=== PATIENT | female | born 1990 | race Caucasian/White ===

== ENCOUNTER 2021-05-07 13:36 | Emergency (ER) | payer OTHER ==
[~2021-05-07] VITALS: Ht 160 cm; Wt 79.0 kg
[2021-05-07] MEDS ORDERED: IBUPROFEN 600MG TABLET PO STA (15:09)
[2021-05-07] MEDS ORDERED: BALANCED SALT IRRIG SOLN 15ML IR ONE (15:15)
[2021-05-07] MEDS ORDERED: FLUORESCEIN SODIUM 1MG/STRIP LEFTEYE ONE (15:15)
[2021-05-07] MEDS ORDERED: TETRACAINE 0.5% OPHTH DROPS 4ML LEFTEYE ONE (15:15)
[2021-05-07] MEDS ORDERED: IBUP-2029 PO (18:33)
[2021-05-07 19:08] VITALS: BP 132/77
[2021-05-07] MEDS ORDERED: POLY15DR31 LEFTEYE (19:09)
== END 2021-05-07 19:19 | disposition home or self-care (01) ==
LOC: ER 13:36
DX: S00.12XA Contusion of left eyelid and periocular area, initial encounter (principal); Y04.0XXA Assault by unarmed brawl or fight, initial encounter; Y93.89 Activity, other specified; Y92.89 Other specified places as the place of occurrence of the external cause; Y99.8 Other external cause status
CPT/HCPCS: 81025; 99282